=== PATIENT | male | born 1960 | race Caucasian/White ===

== ENCOUNTER → 2016-07-10 | Outpatient (CLI) | payer OTHER | END | disposition home or self-care (01) | LOC: GMAM 16:49 | PROVIDERS: ATTEND Family Medicine | DX: N48.29 Other inflammatory disorders of penis (principal) ==

== ENCOUNTER → 2016-12-10 | Outpatient (CLI) | payer OTHER | END | disposition home or self-care (01) | LOC: GMA 10:14 | DX: Z12.5 Encounter for screening for malignant neoplasm of prostate (principal) ==

== ENCOUNTER → 2016-12-26 | Outpatient (CLI) | payer OTHER ==
--- NOTE | 2016-12-29 09:40 | CT ---
EXAM DESCRIPTION: Chest w/o and with IV Contrast CT. CLINICAL HISTORY: HEMOPTYSIS COMPARISON: 2 view chest 09/29/2013. TECHNIQUE: Spiral-axial scans at 5.0 mm intervals through the lungs and thorax without and with IV contrast. 2.5 mm lung algorithm axial reconstructions. Coronal and sagittal 2.0 Mm reconstructions. No adverse reactions. Total Exam DLP: 1330.21 mGy-cm. This exam was performed according to our departmental dose-optimization program which includes automated exposure control, adjustment of the mA and/or kV according to patient size and/or use of iterative reconstruction technique; to reduce radiation dose to as low as reasonably achievable (ALARA). FINDINGS: Pleural blebs and bulla mostly at the apices. Mild tree-in-bud parenchymal pattern in the upper lobes and small parenchymal blebs in the upper lobes. No nodules masses or infiltrates. Scattered focal pleural thickening no effusion or pneumothorax. Uniform enhancement of the thyroid gland. No soft tissue masses at the base of the neck. Small mediastinal nodes anterior mid mediastinum. Short axis diameters less than 1 cm. Bilateral hilar nodes short axis diameter less than 1 cm. Small nonreactive lymph nodes in the axilla bilaterally. Atherosclerotic calcification in the aorta and in the proximal brachiocephalic vessels. Coronary artery stents. Surgical clips in the gallbladder fossa, no fluid. Abdominal aortic atherosclerotic calcifications. Normal density and size of the included pancreas spleen adrenal glands. No subdiaphragmatic fluid or free air in the included peritoneal space. Minimal thoracic disc space narrowing. No bone destruction. IMPRESSION: 1. Early emphysematous changes in the upper lobes of the lungs and pleura. No nodules masses or infiltrates. 2. Small nodes in the mediastinum and yasmeen but no definite adenopathy. 3. Coronary artery stents. Electronically signed by: Domenico Bradley MD 12/28/2016 9:04 AM SENIOR HEALTH PHYSICS TECHNICIAN Workstation: [id number]
== END | disposition home or self-care (01) ==
LOC: CT 08:02
PROVIDERS: ATTEND Family Medicine
DX: R04.2 Hemoptysis (principal); R04.9 Hemorrhage from respiratory passages, unspecified

== ENCOUNTER → 2016-12-30 | Outpatient (CLI) | payer OTHER | END | disposition home or self-care (01) | LOC: GMAM 11:04 | PROVIDERS: ATTEND Family Medicine | DX: J30.1 Allergic rhinitis due to pollen (principal) ==

== ENCOUNTER → 2017-04-09 | Outpatient (CLI) | payer OTHER | LOC: GMA 10:23 | PROVIDERS: ATTEND Physician Assistant | DX: R53.83 Other fatigue (principal); R53.81 Other malaise ==

== ENCOUNTER → 2017-04-16 | Outpatient (CLI) | payer OTHER ==
--- NOTE | 2017-04-16 12:23 | CT ---
EXAM DESCRIPTION: CT ABDOMEN AND PELVIS WITH CONTRAST CLINICAL HISTORY: ABD PAIN COMPARISON: None Available. TECHNIQUE: CT of the abdomen and pelvis are performed during IV bolus administration of 100 mL of Isovue 300. Oral contrast media is administered as well. FINDINGS: In the lower chest, the lung bases are clear. Heart size is normal. CT abdomen Low density liver suggests fatty infiltration. Small focus in the medial inferior right lobe could be partly unenhanced hemangioma approximately 1.6 cm (axial image 38, series 2). High density area in the periphery of the right lobe is thought to be an area of parenchymal sparing uninvolved by fatty infiltration measuring 2.1 cm. Alternatively this could be small hemangioma but this is thought less likely. Focal increased fatty infiltration may account for decreased densities near the falciform ligament and gallbladder fossa. Gallbladder clips are present in the gallbladder is surgically absent. Small accessory splenule is present. The spleen, pancreas, gallbladder, adrenal glands, stomach and kidneys are otherwise normal in appearance. No inflammation around the pancreas. No renal stones or hydronephrosis. Delayed images are also obtained showing positive contrast opacification of the intrarenal collecting systems. There is contrast in the bladder and distal right ureter. No ureteral dilatation. No bowel dilatation to suggest obstruction. No free air or free fluid. CT pelvis Appendix is surgically absent with clips in the right iliac fossa. No inflammation around the cecum or terminal ileum or sigmoid colon. Bladder and distal ureters are negative for stones. Normal enhancement of pelvic vessels. No inguinal or lower pelvic adenopathy. Prostate is normal in size for age. Normal symmetrical seminal vesicles. Bone window images are negative for fracture or lytic lesion. Coronal and sagittal reformatted images confirm the findings. IMPRESSION: Hepatic steatosis with additional hypodense and hyperdense foci in the liver thought to be benign. No acute upper abdominal process. No acute pelvic process This exam was performed according to our departmental dose-optimization program, which includes automated exposure control, adjustment of the mA and/or kV according to patient size and/or use of iterative reconstruction technique. Total DLP equals 2045.26 mGycm. Electronically signed by: Ronald Davis MD 04/16/2017 12:22 PM FILLING TECHNICIAN
== END ==
LOC: CT 08:11
PROVIDERS: ATTEND Family Medicine
DX: R10.84 Generalized abdominal pain (principal); K76.0 Fatty (change of) liver, not elsewhere classified

== ENCOUNTER → 2017-06-23 | Outpatient (CLI) | payer OTHER | LOC: GMAM 11:23 | PROVIDERS: ATTEND Family Medicine | DX: E29.9 Testicular dysfunction, unspecified (principal); E55.9 Vitamin D deficiency, unspecified ==

== ENCOUNTER 2017-07-04 18:30 | Emergency (ER) | payer OTHER ==
--- NOTE | 2017-07-04 18:48 | ED.PDOC ---
History of Present Illness - General Chief Complaint: Skin/Abrasion/Tear Stated Complaint: skin rash Time Seen by Provider: 07/04/17 18:45 Source: patient Exam Limitations: no limitations - History of Present Illness Initial Comments: Yeison Muse 56 y/o male stated that he developed pruritic skin rash initially on the left leg 4 days ago and gradually spread to his lower back.took benadryl anti-itch cream but not better.Could not determine if insect bite or he came in contact with something at work. Timing/Duration: getting worse, other - see hpi Severity: moderate Location: torso, extremities Worsening Factors: nothing Associated Symptoms: rash Allergies/Adverse Reactions: Allergies Codeine Allergy (Verified 07/04/17 18:55) Hydrocodone Allergy (Verified 07/04/17 18:55) Penicillins Allergy (Verified 07/04/17 18:55) Home Medications: Ambulatory Orders Acetaminophen [Tylenol] 500 mg PO PRN 10/03/13 Aspirin [(None)] 325 mg PO QD 10/03/13 Diphenhydramine HCl (Sleep) [Zzzquil] 15 ml PO BEDTIME 10/03/13 Eszopiclone [Lunesta] 3 mg PO BEDTIME 10/03/13 Fenofibrate 145 mg PO DAILY 10/03/13 Lisinopril 40 mg PO DAILY 10/03/13 Metoprolol Succinate [Metoprolol Succinate ER] 100 mg PO DAILY 10/03/13 [place]-3 Fatty Acids [Fish Oil] 1 mg PO DAILY 10/03/13 Pravastatin Sodium [Pravachol] 80 mg PO BID 10/03/13 Ciprofloxacin [Cipro] 500 mg PO BID 7 Days #14 tab 07/04/17 Methylprednisolone [Medrol Dose Leonid] 4 mg PO DAILY 6 Days #21 tab 07/04/17 hydrOXYzine HCl [Atarax] 25 mg PO TID #30 tab 07/04/17 Review of Systems - Review of Systems Constitutional: States: no symptoms reported EENTM: States: no symptoms reported Respiratory: States: no symptoms reported Cardiology: States: no symptoms reported Skin: States: see HPI Past Medical History (General) - Patient Medical History Hx Congestive Heart Failure: No Hx Diabetes: No Surgical History: appendectomy, other - cardiac stent Family Medical History - Family History Father Family History: Unknown Physical Exam - Physical Exam General Appearance: Alert, Comfortable, No apparent distress Eyes, Ears, Nose, Throat Exam: normal ENT inspection, pharynx normal Neck: non-tender, supple Cardiovascular/Chest: normal peripheral pulses, regular rate, rhythm, no murmur Respiratory: chest non-tender, lungs clear Gastrointestinal/Abdominal: soft Back Exam: normal inspection, no CVA tenderness Extremity: no pedal edema, no calf tenderness Neurologic: alert, oriented x 3 Skin Exam: warm/dry, normal color Skin Problem Location: torso, lower extremities Skin Character: erythema, macules, papules Lymphatic: no adenopathy Departure - Departure Clinical Impression: Pruritic rash Time of Disposition: 18:55 Disposition: Discharge to Home or Self Care Condition: Fair Departure Forms: ED Discharge - Pt. Copy, Patient Portal Self Enrollment Instructions: DI for Rash Referrals: Yeison Madison MD [Primary Care Provider] - 1-2 Weeks Prescriptions: Ciprofloxacin [Cipro] 500 mg PO BID 7 Days #14 tab hydrOXYzine HCl [Atarax] 25 mg PO TID #30 tab Methylprednisolone [Medrol Dose Leonid] 4 mg PO DAILY 6 Days #21 tab Home Medications: Ambulatory Orders Acetaminophen [Tylenol] 500 mg PO PRN 10/03/13 Aspirin [(None)] 325 mg PO QD 10/03/13 Diphenhydramine HCl (Sleep) [Zzzquil] 15 ml PO BEDTIME 10/03/13 Eszopiclone [Lunesta] 3 mg PO BEDTIME 10/03/13 Fenofibrate 145 mg PO DAILY 10/03/13 Lisinopril 40 mg PO DAILY 10/03/13 Metoprolol Succinate [Metoprolol Succinate ER] 100 mg PO DAILY 10/03/13 [place]-3 Fatty Acids [Fish Oil] 1 mg PO DAILY 10/03/13 Pravastatin Sodium [Pravachol] 80 mg PO BID 10/03/13 Ciprofloxacin [Cipro] 500 mg PO BID 7 Days #14 tab 07/04/17 Methylprednisolone [Medrol Dose Leonid] 4 mg PO DAILY 6 Days #21 tab 07/04/17 hydrOXYzine HCl [Atarax] 25 mg PO TID #30 tab 07/04/17 Additional Instructions: May use over the counter Hydrocortisone cream apply to affected area am/pm; Follow up with primary Md 07 Jul 2017
[2017-07-04] MEDS ORDERED: hydrOXYzine HCl 25 MG TAB PO ONE (18:53)
[2017-07-04] MEDS ORDERED: predniSONE 10 MG TAB PO ONE (18:53)
[2017-07-04] MEDS ORDERED: DEXAMETHASONE INJ 10 MG/ML VIAL IM ONE (18:53)
[2017-07-04 18:55] VITALS: BP 157/70; TEMP 98; O2SAT 94
[2017-07-04] MEDS ORDERED: levoFLOXacin 500 MG TAB PO ONE (18:59)
== END 2017-07-04 19:34 | disposition home or self-care (01) ==
LOC: ER 18:30
DX: L29.9 Pruritus, unspecified (principal)
CPT/HCPCS: J1100; J7512

== ENCOUNTER → 2017-08-24 | Outpatient (CLI) | payer OTHER | LOC: GMAM 11:42 | PROVIDERS: ATTEND Family Medicine | DX: D64.9 Anemia, unspecified (principal); E55.9 Vitamin D deficiency, unspecified ==

== ENCOUNTER → 2018-02-17 | Outpatient (CLI) | payer OTHER | LOC: GMAM 12:45 | PROVIDERS: ATTEND Family Medicine | DX: D64.9 Anemia, unspecified (principal); E55.9 Vitamin D deficiency, unspecified; Z12.5 Encounter for screening for malignant neoplasm of prostate ==

== ENCOUNTER → 2018-09-22 | Outpatient (CLI) | payer OTHER | LOC: GMAM 10:19 | PROVIDERS: ATTEND Family Medicine | DX: E55.9 Vitamin D deficiency, unspecified (principal); I10 Essential (primary) hypertension ==

== ENCOUNTER 2018-10-22 | Emergency (ER) | payer OTHER ==
--- NOTE | 2018-10-22 15:31 | ED.PDOC ---
History of Present Illness - General Chief Complaint: Bite: Animal/Insect/Human Stated Complaint: Possible insect bite to L thumb Time Seen by Provider: 10/22/18 15:20 - History of Present Illness Initial Comments: 58 y.o. M presents c/o of a possible insect bite to his left thumb. Reports that yesterday he was at work when he lifted the cover of a water meter and felt a sharp sting to his thumb. Today he noticed some swelling of his thumb and so decided to get checked out. He denies seeing any insects/wasps/spiders nor snakes. Also denies any pain of his thumb currently. swelling is localized to only the tip of his thumb. no other complaints. Allergies/Adverse Reactions: Allergies Codeine Allergy (Verified 07/04/17 18:55) Hydrocodone Allergy (Verified 07/04/17 18:55) Penicillins Allergy (Verified 07/04/17 18:55) Home Medications: Ambulatory Orders Acetaminophen [Tylenol] 500 mg PO PRN 10/03/13 Aspirin [(None)] 325 mg PO QD 10/03/13 Diphenhydramine HCl (Sleep) [Zzzquil] 15 ml PO BEDTIME 10/03/13 Eszopiclone [Lunesta] 3 mg PO BEDTIME 10/03/13 Fenofibrate 145 mg PO DAILY 10/03/13 Lisinopril 40 mg PO DAILY 10/03/13 Metoprolol Succinate [Metoprolol Succinate ER] 100 mg PO DAILY 10/03/13 Sisters-3 Fatty Acids [Fish Oil] 1 mg PO DAILY 10/03/13 Pravastatin Sodium [Pravachol] 80 mg PO BID 10/03/13 Ciprofloxacin [Cipro] 500 mg PO BID 7 Days #14 tab 07/04/17 Methylprednisolone [Medrol Dose Leonid] 4 mg PO DAILY 6 Days #21 tab 07/04/17 hydrOXYzine HCl [Atarax] 25 mg PO TID #30 tab 07/04/17 Review of Systems - Review of Systems Constitutional: States: no symptoms reported EENTM: States: no symptoms reported Respiratory: States: no symptoms reported Cardiology: States: no symptoms reported Gastrointestinal/Abdominal: States: no symptoms reported Genitourinary: States: no symptoms reported Musculoskeletal: States: no symptoms reported Skin: States: change in color, other - redness Neurological: States: no symptoms reported Endocrine: States: no symptoms reported Hematologic/Lymphatic: States: no symptoms reported All other Systems: Reviewed and Negative Past Medical History (General) - Patient Medical History Hx Stroke: No Hx of COPD: Yes Hx Cardiac Disorders: Yes - high choleterol; cardiac stents Hx Congestive Heart Failure: No Hx Hypertension: Yes Hx Diabetes: No Hx Gastroesophageal Reflux: Yes Hx MRSA: No - Vaccination History Hx Influenza Vaccination: Yes - 2016 Hx Pneumococcal Vaccination: Yes - 2014 - Social History Hx Tobacco Use: Yes Family Medical History - Family History Father Family History: Unknown Living Status: Physical Exam - Physical Exam General Appearance: Alert, Comfortable Ears, Nose, Throat: hearing grossly normal, normal ENT inspection Neck: non-tender, supple Respiratory: chest non-tender, lungs clear Cardiovascular/Chest: normal peripheral pulses, no edema Peripheral Pulses: radial,right: 2+, radial,left: 2+ Gastrointestinal/Abdominal: normal bowel sounds, non tender, soft Rectal Exam: deferred Extremity: other - slight swelling to left thumb, distal to DIP. no tenderness or puncture wound noted. very minimal erythema Neurologic: alert, normal mood/affect Skin Exam: normal color, warm/dry Progress - Progress Progress: 10/22/18 15:33 patient presenting with a likely insect bite to L thumb. Localized inflammatory reaction. No signs of infection. recommended ICE and NSAIDs prn. return precautions. Departure - Departure Clinical Impression: Swelling of thumb, left Disposition: Discharge to Home or Self Care Departure Forms: ED Discharge - Pt. Copy, Patient Portal Self Enrollment Instructions: DI for Insect Bites and Stings Referrals: Yeison Madison MD [Primary Care Provider] - 1-2 Weeks Home Medications: Ambulatory Orders Acetaminophen [Tylenol] 500 mg PO PRN 10/03/13 Aspirin [(None)] 325 mg PO QD 10/03/13 Diphenhydramine HCl (Sleep) [Zzzquil] 15 ml PO BEDTIME 10/03/13 Eszopiclone [Lunesta] 3 mg PO BEDTIME 10/03/13 Fenofibrate 145 mg PO DAILY 10/03/13 Lisinopril 40 mg PO DAILY 10/03/13 Metoprolol Succinate [Metoprolol Succinate ER] 100 mg PO DAILY 10/03/13 Sisters-3 Fatty Acids [Fish Oil] 1 mg PO DAILY 10/03/13 Pravastatin Sodium [Pravachol] 80 mg PO BID 10/03/13 Ciprofloxacin [Cipro] 500 mg PO BID 7 Days #14 tab 07/04/17 Methylprednisolone [Medrol Dose Leonid] 4 mg PO DAILY 6 Days #21 tab 07/04/17 hydrOXYzine HCl [Atarax] 25 mg PO TID #30 tab 07/04/17
== END 2018-10-22 15:56 | disposition home or self-care (01) ==

== ENCOUNTER → 2019-01-10 | Outpatient (CLI) | payer OTHER | LOC: GMAM 10:40 | PROVIDERS: ATTEND Family Medicine | DX: D50.8 Other iron deficiency anemias (principal) ==

== ENCOUNTER → 2019-04-19 | Outpatient (CLI) | payer OTHER | DX: Z00.00 Encounter for general adult medical examination without abnormal findings (principal) ==

== ENCOUNTER → 2019-11-10 | Outpatient (CLI) | payer OTHER | LOC: GMAM 10:46 | PROVIDERS: ATTEND Family Medicine | DX: E55.9 Vitamin D deficiency, unspecified (principal); I10 Essential (primary) hypertension ==